=== PATIENT | female | born 1985 | race Caucasian/White ===

== ENCOUNTER → 2016-10-12 | Outpatient (CLI) | payer BC ==
[2016-10-12 20:20] LABS: BASO % 0.1 % (0.0-1.0); EOS # 0.3 K/mm3 (0.0-0.50); EOS % 2.9 % (0.0-3.0); LARGE UNSTAINED CELL # 0.1 K/mm3 (0.0-0.4); LARGE UNSTAINED CELL % 1.2 % (0.0-4.0); LYMPH # 1.6 K/mm3 (1.5-4.5); LYMPH % 15.7 % (24.0-44.0); MEAN CORPUSCULAR HEMOGLOBIN 30.6 pg (27.0-33.0); MEAN CORPUSCULAR HGB CONC 35.1 g/dl (32.0-36.5); MEAN CORPUSCULAR VOLUME 87.1 fl (80.0-96.0); MONO # 0.3 K/mm3 (0.0-0.8); MONO % 3.1 % (0.0-5.0); NEUTROPHILS # 7.8 K/mm3 (1.8-7.7); NEUTROPHILS % 76.9 % (36.0-66.0); PLATELET COUNT, AUTOMATED 244 k/mm3 (150-450); WHITE BLOOD COUNT 10.2 K/mm3 (4.0-10.0)
[2016-10-13 09:22] LABS: HIV SCRN NEGATIVE (NEGATIVE); HIV SCRN1 NEGATIVE (NEGATIVE)
[2016-10-13 09:29] LABS: CONTROL LINE INT CTR LINE PRESENT
[2016-10-13 09:54] LABS: HBsAg Prenatal NEGATIVE (NEGATIVE)
== END | disposition home or self-care (01) ==
LOC: M WUC 15:53
PROVIDERS: ATTEND Advanced Practice Midwife
DX: Z34.81 Encounter for supervision of other normal pregnancy, first trimester (principal); Z36 Encounter for antenatal screening of mother; Z3A.00 Weeks of gestation of pregnancy not specified

== ENCOUNTER → 2016-11-30 | Outpatient (CLI) | payer BC ==
--- NOTE | 2016-12-01 07:15 | REP ---
Clinical: Anatomical evaluation. Comparison: None . Findings: Examination demonstrates a single live intrauterine in cephalic presentation. motion is identified by technologist. Placenta is noted anteriorly and grade zero without evidence for placenta previa or abruption. Amniotic fluid volume is normal. Cervix measures 4.3 cm in length and appears closed. No evidence for nuchal cord. Gestational age by current measurements 20 weeks 3 days with MASOOD 04/16/2017 . FHR equals 144 beats per minute. BPD 4.9 cm 20 weeks 6 days HC 18.0 cm 20 weeks 3 days AC 16.1 cm 21 weeks 1 day FL 3.4 cm 20 weeks 3 days HL 3.3 cm 21 weeks 0 days HC/AC ratio 1.12 Estimated weight 379 grams ( 59th percentile). Anatomical assessment demonstrates normal structures including cranium, choroid plexus, cavum, cerebellum/posterior fossa, facial features, lungs, diaphragm, stomach, cord insertion/three-vessel cord, kidneys/bladder, spine, and extremities. Impression: Single live intrauterine in cephalic presentation. Limited evaluation of the heart and cardiac ventricular outflow tracts noted. Remainder of the anatomical assessment is complete and normal. Signed by Sergio Box MD 12/01/2016 07:07 A
== END ==
LOC: M SMT 14:46
PROVIDERS: ATTEND Advanced Practice Midwife
DX: Z34.82 Encounter for supervision of other normal pregnancy, second trimester (principal); Z36 Encounter for antenatal screening of mother; Z3A.20 20 weeks gestation of pregnancy

== ENCOUNTER → 2016-12-28 | Outpatient (CLI) | payer BC ==
--- NOTE | 2016-12-28 16:59 | REP ---
OB ULTRASOUND: Real-time sonographic evaluation of the gravid uterus is performed utilizing transabdominal and endovaginal technique. There is a single living intrauterine gestation with estimated gestational age of 24 weeks 3 days. EDC 04/16/2017. Today's measurements indicate appropriate growth. BPD 62 mm = 25 weeks 1 day, 64th percentile. HC 227 mm = 24 weeks 5 days, 55th percentile. AC 212 mm = 25 weeks 5 day, 76th percentile. Femur length 43 mm = 24 weeks 1 days, 44th percentile. HC/AC ratio 1.07 within normal range. Estimated weight 763 grams, 61st percentile. heart rate 141 beats per minute. SEEN/GROSSLY UNREMARKABLE Lateral ventricles Yes Posterior fossa Yes Upper lip Yes Four-chamber heart Yes LVOT Yes RVOT Yes Stomach Yes Cord insertion Yes Three vessel cord Yes Kidneys Yes Bladder Yes Spine Yes position: Vertex Placenta: Anterior and grade 0 with no previa or abruption. Amniotic fluid: Within normal limits. Cervix is closed and measures 4.7 cm in length. Signed by Stefan Mullen MD 12/29/2016 02:24 P
== END ==
LOC: M SMT 14:54
PROVIDERS: ATTEND Advanced Practice Midwife
DX: Z34.82 Encounter for supervision of other normal pregnancy, second trimester (principal); Z36 Encounter for antenatal screening of mother; Z3A.24 24 weeks gestation of pregnancy

== ENCOUNTER → 2017-01-03 | Outpatient (REF) | payer BC | LOC: M LAB REF 16:29 | PROVIDERS: ATTEND Physician Assistant | DX: J02.9 Acute pharyngitis, unspecified (principal) ==

== ENCOUNTER → 2017-02-08 | Outpatient (CLI) | payer BC ==
[2017-02-08 17:20] LABS: MEAN CORPUSCULAR HEMOGLOBIN 30.5 pg (27.0-33.0); MEAN CORPUSCULAR HGB CONC 33.6 g/dl (32.0-36.5); MEAN CORPUSCULAR VOLUME 90.9 fl (80.0-96.0); RED CELL DISTRIBUTION WIDTH 13.8 % (11.5-14.5); WHITE BLOOD COUNT 11.3 K/mm3 (4.0-10.0)
== END ==
LOC: M SMT 15:13
PROVIDERS: ATTEND Advanced Practice Midwife
DX: Z34.82 Encounter for supervision of other normal pregnancy, second trimester (principal); Z36 Encounter for antenatal screening of mother; Z3A.00 Weeks of gestation of pregnancy not specified

== ENCOUNTER → 2017-02-15 | Outpatient (CLI) | payer BC | LOC: M LAB 07:49 | PROVIDERS: ATTEND Advanced Practice Midwife | DX: R73.02 Impaired glucose tolerance (oral) (principal) ==

== ENCOUNTER → 2017-03-21 | Outpatient (REF) | payer BC ==
[~2017-03-21] MED LIST: ACET50TA PO; IBUP-1114 PO; PRENTAB9 PO
== END ==
LOC: M LAB REF 16:51
PROVIDERS: ATTEND Specialist
DX: Z34.83 Encounter for supervision of other normal pregnancy, third trimester (principal); Z36 Encounter for antenatal screening of mother; Z3A.00 Weeks of gestation of pregnancy not specified

== ENCOUNTER → 2017-03-31 | Outpatient (CLI) | payer BC ==
--- NOTE | 2017-04-01 06:33 | REP ---
Clinical: Anatomical evaluation. Comparison: 12/28/2016 . Findings: Examination demonstrates a single live intrauterine in cephalic presentation. motion is identified by technologist. Placenta is noted anteriorly and grade II without evidence for placenta previa or abruption. Amniotic fluid volume is normal. No evidence for nuchal cord Gestational age by first US 37 weeks 5 days with MASOOD 04/16/2017 . Gestational age by current measurements 38 weeks 5 days with MASOOD 04/09/2017 . FHR equals 123 beats per minute. Estimated weight 3917 grams ( 93rd percentile). Amniotic fluid index 12.6 cm Impression: Single live advanced gestation in cephalic presentation demonstrating appropriate interval growth. Amniotic fluid volume normal. Estimated weight upper limits of normal. Signed by Sergio Box MD 04/01/2017 04:50 A
== END ==
LOC: M RAD 12:48
PROVIDERS: ATTEND Advanced Practice Midwife
DX: O26.843 Uterine size-date discrepancy, third trimester (principal); Z36 Encounter for antenatal screening of mother; Z3A.38 38 weeks gestation of pregnancy

== ENCOUNTER 2017-04-13 07:36 | Inpatient (IN) | payer BC ==
[~2017-04-13] VITALS: Ht 165.1 cm; Wt 101.0 kg
[2017-04-13] VITALS (50 sets, daily range): BP systolic 95–159; BP diastolic 48–84
[2017-04-13] MEDS ORDERED: miSOPROStol 50 MCG 1/2 TAB (S0191) PO ONE (09:00)
[2017-04-13 09:20] LABS: MEAN CORPUSCULAR HEMOGLOBIN 30.6 pg (27.0-33.0); MEAN CORPUSCULAR HGB CONC 34.9 g/dl (32.0-36.5); MEAN CORPUSCULAR VOLUME 87.7 fl (80.0-96.0); RED CELL DISTRIBUTION WIDTH 13.8 % (11.5-14.5)
[2017-04-13] MEDS ORDERED: PRENTAB9 PO (09:33)
--- NOTE | 2017-04-13 10:32 | HPE ---
DATE OF ADMISSION: 04/13/2017 Lizeth is a 31-year-old 2, para 1-0-0-1 at 39-1/7 weeks with an estimated date of confinement (EDC) of 04/19/2017 based on first trimester ultrasound. She presents to labor and delivery today for induction of labor due to large for gestational age fetus, per consult with Dr. Kristal Lockett. She denies regular contractions, vaginal bleeding and leakage of fluid. Her fetus has been active. care was initiated at [facility] in the first trimester. course has been complicated by a history of a LEEP procedure in 2004. She had a normal transvaginal cervical length performed with her anatomy scan, and a history of asthma with rare inhaler use. OBSTETRICAL HISTORY: December 2011 of 41 weeks gestation, following an induction of labor, she had a spontaneous vaginal delivery for a 9 pound male. OB LABS: Blood type O positive. Antibody screen negative. Rubella immune. VDRL nonreactive. Urine culture no growth. Hep B surface antigen negative. HIV negative. Hep C antibody nonreactive. Gonorrhea and chlamydia negative. She did decline all genetic serum screening labs. Her gestational diabetic screening was elevated at 161 with a normal 3-hour glucose tolerance test, fasting of 90, 1-hour 152, 2-hour 117, 3-hour 81. Her Group B Streptococcus (GBS) is negative. PAST MEDICAL HISTORY: Asthma, infrequent inhaler use. Abnormal Pap. Childhood varicella. SURGERIES: LEEP. Metal plate placed in her right ankle March 2016. Appendectomy in 1997. FAMILY HISTORY: Noncontributory. SOCIAL HISTORY: The patient is . Her is at bedside and supportive as well as her mom. She is a nonsmoker. Denies any history of alcohol and drug use. No history of any sexually transmitted infections and denies history of abuse, physical, sexual and emotional. ALLERGIES: 1. SEPTRA. CURRENT MEDICATIONS: - albuterol inhaler p.r.n. - vitamin OBJECTIVE: Temperature 98.5, pulse 75, respirations 18, blood pressure 132/63. She is alert and oriented times three. She is in no apparent distress, smiling and talkative. heart rate is 130 with moderate variability, positive accelerations, no decelerations. No pattern of regular contractions. Her abdomen is gravid, cephalic presentation. Estimated weight 9 pounds. Sterile vaginal exam 1 cm dilated, 80% effaced, -3 station. ASSESSMENT: Intrauterine at 39-1/7 weeks. heart rate category 1. Large for gestational age. PLAN: Admit patient to labor and delivery. Saline lock. Regular diet at this time. Out of bed ad bailee. Labs routine. Start misoprostol 50 mcg p.o. for cervical ripening with likely IV Pitocin following that. The patient does desire an epidural when she is uncomfortable in her labor. I did review risks to induction of labor including increased risk for section, failed induction, intolerance to labor. The patient has had all of her questions answered and does desire to proceed with induction. I do anticipate labor and a spontaneous vaginal delivery. [facility]
[2017-04-13] MEDS ORDERED: OXYTOCIN DRIP 30 UNITS in APPROPRIATE DILUENT 1 EA IV SCH (13:30)
[2017-04-13] MEDS: LR 1,000 ML IV SCH ×2 (13:47→18:29)
[2017-04-13] MEDS ORDERED: FENTANYL 2MCG/ML ROPIVACAINE 0.2% IN 0.9% NACL 200ML IVBAG As Ordered ONE (18:44)
[2017-04-13] MEDS ORDERED: REFRIGERATOR IV KEYS XX PRN (19:30)
[2017-04-13] MEDS ORDERED: ePHEDrine SULFATE 25 MG/5 ML(5MG/ML) SYRINGE IV PRN (19:30)
[2017-04-13] MEDS ORDERED: FENTANYL/ROPIVACAINE/NACL BAG 200 ML EPIDURAL SCH (19:30)
[2017-04-13] MEDS ORDERED: ONDANSETRON 4MG/2ML VIAL (J2405) IV PRN (19:30)
[2017-04-13] MEDS ORDERED: diphenhydrAMINE INJ 50MG/ML VIAL (J1200) IV PRN (19:30)
[2017-04-13] MEDS ORDERED: EPIDURAL/PCA KEYS XX PRN (19:30)
[2017-04-13] MEDS ORDERED: EPIDURAL COMMENT XX SCH (19:30)
[2017-04-13] MEDS ORDERED: NALOXONE INJ 0.4 MG/1 ML VIAL (J2310) IV PRN (19:30)
[2017-04-13] MEDS ORDERED: LACTATED RINGER'S 1000 ML IV PRN (19:30)
[2017-04-13] MEDS ORDERED: ALBUTEROL 90 MCG/ACT 8GM HFA INHALER INH PRN (20:15)
[2017-04-14] VITALS (17 sets, daily range): BP systolic 102–158; BP diastolic 54–82
[2017-04-14] MEDS ORDERED: METHYLERGONOVINE MALEATE 0.2 MG/ML VIAL (J2210) As Ordered ONE (02:05)
[2017-04-14] MEDS ORDERED: OXYTOCIN DRIP 30 UNITS in APPROPRIATE DILUENT 1 EA IV SCH (02:35)
[2017-04-14] MEDS ORDERED: DIBUCAINE 1% OINTMENT 30GM TOP PRN (02:45)
[2017-04-14] MEDS ORDERED: METHYLERGONOVINE MALEATE 0.2 MG/ML VIAL (J2210) IM ONE (02:45)
[2017-04-14] MEDS ORDERED: ANUSOL HC CREAM 30GM TOP PRN (02:45)
[2017-04-14] MEDS ORDERED: RHOGAM 300 MCG (1500 IU) INJ (J2790) IM SCH (02:45)
[2017-04-14] MEDS ORDERED: MEASLES,MUMPS,RUBELLA VACCINE INJ (MMR-II) (90707) SC SCH (02:45)
[2017-04-14] MEDS ORDERED: METHYLERGONOVINE MALEATE 0.2 MG TAB PO PRN (02:45)
[2017-04-14] MEDS: IBUPROFEN 800 MG TAB PO PRN ×3 (03:55→21:41)
--- NOTE | 2017-04-14 05:57 | DN ---
DATE OF DELIVERY: 04/14/2017 SUBJECTIVE: Lizeth is a 31-year-old 2, para 2-0-0-2 now, who was admitted to labor and delivery for induction of labor. Misoprostol and intravenous (IV) Pitocin were utilized and labor did ensue. She did utilize an epidural for her labor coping. She progressed to full dilation at 0119. She pushed to a normal spontaneous vaginal delivery of a live male infant in occiput anterior (OA) position with restitution to left occiput transverse (LOT) position at 0138. There was a nuchal cord times one, loose, that was reduced manually at the time of delivery. [place] shoulders delivered with gentle downward traction and the corpus immediately followed. He was placed on maternal abdomen crying and active. His mouth and nares were bulb suctioned. The cord was clamped times two and cut by the father of the baby. A spontaneous expulsion of an intact placenta with three-vessel cord by Butts mechanism was at 0150. Uterine hemostasis was achieved with IV Pitocin rapid infusion, uterine fundal massage and Methergine intramuscular (IM). Estimated blood loss 500 mL. Perineum and vagina were inspected, noted at a first-degree midline laceration. The laceration was repaired under epidural anesthesia with 3-0 Rapide in the usual fashion. male weighed 8 pounds 7 ounces, 3840 grams, scores nine and nine. Mom plans to breastfeed her son, and the family is undecided as to what to name their son at this time. At the close of delivery, lap counts, needle counts and instrument counts were correct and verified.
[2017-04-14] MEDS: ACETAMINOPHEN 500 MG TAB PO PRN ×3 (06:34→20:05)
[2017-04-14] MEDS: PRENATAL VITAMINS CHEWABLE TABLET PO SCH (09:50)
[2017-04-15 05:53] VITALS: BP 132/77
[2017-04-15] MEDS: IBUPROFEN 800 MG TAB PO PRN ×2 (06:51→16:16)
[2017-04-15] MEDS: DOCUSATE SODIUM 100 MG CAP PO PRN (06:51)
[2017-04-15] MEDS: PRENATAL VITAMINS CHEWABLE TABLET PO SCH (08:28)
[2017-04-15] MEDS: ACETAMINOPHEN 500 MG TAB PO PRN (08:29)
[2017-04-15 18:09] VITALS: BP 130/77
[2017-04-16] MEDS: IBUPROFEN 800 MG TAB PO PRN (03:27)
[2017-04-16] MEDS: DOCUSATE SODIUM 100 MG CAP PO PRN (05:42)
[2017-04-16] MEDS: ACETAMINOPHEN 500 MG TAB PO PRN (05:42)
[2017-04-16 06:05] VITALS: BP 138/72
[2017-04-16] MEDS: PRENATAL VITAMINS CHEWABLE TABLET PO SCH (07:44)
[2017-04-16] MEDS ORDERED: IBUP-1114 PO (10:27)
[2017-04-16] MEDS ORDERED: ACET50TA PO (10:27)
== END 2017-04-16 11:15 | disposition home or self-care (01) | DRG 560 ==
LOC: M LDI 07:36 → M OBS 04-14 04:00
PROVIDERS: ADMIT Advanced Practice Midwife; ATTEND Advanced Practice Midwife
PROC: 10907ZC Drainage of Amniotic Fluid, Therapeutic from Products of Conception, Via Natural or Artificial Opening (ICD-10-PCS; 2017-04-13)
PROC: 3E0P7GC Introduction of Other Therapeutic Substance into Female Reproductive, Via Natural or Artificial Opening (ICD-10-PCS; 2017-04-13)
PROC: 10E0XZZ Delivery of Products of Conception, External Approach (ICD-10-PCS; principal; 2017-04-14)
PROC: 0HQ9XZZ Repair Perineum Skin, External Approach (ICD-10-PCS; 2017-04-14)
DX: O36.63X0 Maternal care for excessive fetal growth, third trimester, not applicable or unspecified (principal); O69.81X0 Labor and delivery complicated by cord around neck, without compression, not applicable or unspecified; Z3A.39 39 weeks gestation of pregnancy; O70.0 First degree perineal laceration during delivery; Z37.0 Single live birth

== ENCOUNTER 2018-02-11 00:47 | Emergency (ER) | payer BC ==
[2018-02-11] MEDS ORDERED: ACETAMINOPHEN 325 MG TAB As Ordered (01:34)
[2018-02-11 01:41] LABS: CONTROL LINE UCG INT CTR LINE PRESENT; URINE PREG TEST NEGATIVE (NEGATIVE)
[2018-02-11] MEDS ORDERED: METAL LOCK LOOP XX (07:09)
[2018-02-11] MEDS: LIDOCAINE W/EPINEPHRINE 1% 20ML VIAL SC (07:26)
[2018-02-11] MEDS: IBUPROFEN 600 MG TAB PO (07:27)
== END 2018-02-11 07:40 | disposition home or self-care (01) ==
LOC: M ED 00:47
DX: S01.01XA Laceration without foreign body of scalp, initial encounter (principal); S02.5XXA Fracture of tooth (traumatic), initial encounter for closed fracture; W10.9XXA Fall (on) (from) unspecified stairs and steps, initial encounter; Y92.009 Unspecified place in unspecified non-institutional (private) residence as the place of occurrence of the external cause; J45.909 Unspecified asthma, uncomplicated; Z88.2 Allergy status to sulfonamides
CPT/HCPCS: 70450

== ENCOUNTER → 2018-10-06 | Outpatient (REF) | payer BC ==
[~2018-10-06] MED LIST changes: -ACET50TA PO; +KEFL500C17 PO; +MAPA500T2 PO; +VENTAER IN
[2018-10-10 15:26] LABS: HPV HYBRID CAPTURE II Negative (Negative)
== END ==
LOC: M LAB REF 17:23
PROVIDERS: ATTEND Advanced Practice Midwife
DX: Z12.4 Encounter for screening for malignant neoplasm of cervix (principal)
CPT/HCPCS: 87624; G0123

== ENCOUNTER 2019-10-21 09:19 | Observation (INO) | payer BC ==
[~2019-10-21] VITALS: Ht 165.1 cm; Wt 108.0 kg
[2019-10-21] MEDS ORDERED: PRED20TA PO ×2 (09:26→12:47)
[2019-10-21] MEDS ORDERED: SERT25TA21 PO (09:26)
[2019-10-21] MEDS ORDERED: IPRATROPIUM 0.5MG/ALBUTEROL 2.5MG INH SOL UD 3ML (DUONEB)(J7620) NEB ONE (09:45)
[2019-10-21 10:03] LABS: BASO % 0.3 % (0.0-1.0); EOS # 0.1 10^3/uL (0.0-0.5); EOS % 0.6 % (0.0-3.0); HEMATOCRIT 42.8 % (36.0-47.0); HEMOGLOBIN 14.2 g/dl (12.0-15.5); LYMPH # 1.5 10^3/uL (1.5-5.0); LYMPH % 12.1 % (24.0-44.0); MEAN CORPUSCULAR HGB CONC 33.2 g/dl (32.0-36.5); MEAN CORPUSCULAR VOLUME 90.5 fl (80.0-96.0); MONO # 0.6 10^3/uL (0.0-0.8); MONO % 4.8 % (0.0-5.0); NEUTROPHILS # 10.1 10^3/uL (1.5-8.5); NEUTROPHILS % 81.6 % (36.0-66.0); PLATELET COUNT, AUTOMATED 252 10^3/uL (150-450); RED BLOOD COUNT 4.73 10^6/uL (4.00-5.40); WHITE BLOOD COUNT 12.4 10^3/uL (4.0-10.0)
[2019-10-21] MEDS ORDERED: NS 1,000 ML IV ONE ×2 (10:15→13:45)
[2019-10-21] MEDS ORDERED: methylPREDNISolone INJ 125 MG/2 ML VIAL (J2930) IM ONE (10:15)
[2019-10-21 10:30] LABS: INFLUENZA A AMPLIFICATION NEGATIVE (NEGATIVE); INFLUENZA B AMPLIFICATION NEGATIVE (NEGATIVE)
[2019-10-21] MEDS ORDERED: methylPREDNISolone INJ 125 MG/2 ML VIAL (J2930) IV ONE (10:30)
--- NOTE | 2019-10-21 10:35 | REP ---
PA and lateral chest: Comparison is 09/01/2015. The lung valdez are clear. The cardiac size is normal. The yonas, mediastinum, and skeletal structures are unremarkable. Impression: Negative PA and lateral chest. There is no interval change. Electronically Signed by Stefan Petty MD 10/21/2019 10:26 A
[2019-10-21] MEDS ORDERED: ISOVUE-370 76% 100ML VIAL (Q9967) As Ordered ONE (10:45)
[2019-10-21] MEDS: IPRATROPIUM 0.5MG/ALBUTEROL 2.5MG INH SOL UD 3ML (DUONEB)(J7620) NEB PRN ×3 (11:38→21:37)
[2019-10-21] MEDS: MAG SULF 1GM/100ML (MAG RUN) 1 GM in IV 1 EA IV SCH ×2 (11:44→11:56)
--- NOTE | 2019-10-21 12:11 | REP ---
CT of the chest with IV contrast, CT pulmonary angiography: There are no comparison chest CTs. There are no emboli in the pulmonary trunk or central pulmonary arteries. There are no emboli in the pulmonary lobe or segment branches. There are no infiltrates or pleural effusions. There are no masses or nodules. There is no mediastinal, hilar or axillary lymph adenopathy. The thoracic aorta is unremarkable. The cardiac size normal. There is no pericardial effusion. The visualized upper abdominal contents are unremarkable. Impression: There are no pulmonary emboli. Otherwise, essentially negative CT study of the chest with IV contrast. Electronically Signed by Stefan Petty MD 10/21/2019 12:03 P
[2019-10-21] MEDS ORDERED: ACETAMINOPHEN 500 MG TAB PO ONE (12:15)
[2019-10-21] MEDS ORDERED: PROA1AER2 INH ×2 (12:50→14:39)
[2019-10-21 14:00] VITALS: BP_SYST 192; BP_SYST 199; BP_DIAS 100; BP_DIAS 93
[2019-10-21] MEDS ORDERED: FLUTISP NARES (14:40)
[2019-10-21] MEDS ORDERED: amLODIPine 5 MG TAB PO ONE (16:00)
[2019-10-21 16:24] VITALS: BP 185/86
[2019-10-21] MEDS: NS 0.45% 1,000 ML IV SCH (16:28)
[2019-10-21 17:17] LABS: ALBUMIN 4.3 GM/DL (3.2-5.2); ALT/SGPT 18 U/L (12-78); BILIRUBIN,TOTAL 0.3 MG/DL (0.2-1.0); BLOOD UREA NITROGEN 10 MG/DL (7-18); CALCIUM LEVEL 8.2 MG/DL (8.5-10.1); CARBON DIOXIDE LEVEL 17 MEQ/L (21-32); CHLORIDE LEVEL 109 MEQ/L (98-107); CREATININE FOR GFR 1.02 MG/DL (0.55-1.30); GLOMERULAR FILTRATION RATE > 60.0 (>60); GLUCOSE, FASTING 178 MG/DL (70-100); POTASSIUM SERUM 3.9 MEQ/L (3.5-5.1); SODIUM LEVEL 138 MEQ/L (136-145); TOTAL PROTEIN 7.5 GM/DL (6.4-8.2)
[2019-10-21 18:00] VITALS: BP 145/78
[2019-10-21] MEDS: methylPREDNISolone INJ 40 MG/1 ML VIAL (J2920) IV SCH (18:22)
--- NOTE | 2019-10-21 18:58 | HPEPDOC ---
[facility] Medical History & Physical Date of Admission Oct 21, 2019 Date of Service: Oct 21, 2019 Attending Physician: ERNST HODGE MD History and Physical CHIEF COMPLAINT: Shortness of Breath HISTORY OF PRESENT ILLNESS: 34-year-old female with past medical history of asthma presents from home with worsening shortness of breath and cough for the past few days. 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 Patient went to urgent care, diagnosed with URI and sent home, symptoms worsening so she presented to the hospital today. In the ED, she received 3 nebulizer treatments with improvement of symptoms and her lab work showed worsening lactate levels for which she will be admitted for observation. Patient is currently without complaints, reports mild chest discomfort with deep inspiration, otherwise dy spnea and cough have drastically improved. She denies any nausea, vomiting, abdominal pain or diarrhea. 10 point review of system is negative except for above PAST MEDICAL HISTORY: 1. Asthma. PAST SURGICAL HISTORY: 1. Appendectomy. SOCIAL HISTORY: Never smoker. Social alcohol use. Denies drug use FAMILY HISTORY: Negative for cancer or heart disease ALLERGIES: Please see below. HOME MEDICATIONS: Please see below. PHYSICAL EXAMINATION: VITAL SIGNS: Please see below. GENERAL: Obese HEENT: Normocephalic, atraumatic, moist mucous membranes NECK: Supple CARDIOVASCULAR EXAMINATION: S1, S2, no murmurs RESPIRATORY EXAMINATION: Expiratory wheezing appreciated ABDOMINAL EXAMINATION: Soft, nontender, nondistended, hypoactive bowel sounds EXTREMITIES: Range of motion intact SKIN: No rash NEUROLOGICAL EXAMINATION: Alert and oriented 3, no focal deficits PSYCHIATRIC EXAMINATION: Calm and cooperative LABORATORY DATA: See below. IMAGING: CTA negative for PE, no consolidation appreciated MICROBIOLOGY: Please see below. ASSESSMENT: 34-year-old female with past medical history of asthma and sick contacts being admitted for asthma exacerbation and anion gap metabolic acidosis secondary to lactic acidosis. PLAN: 1. Asthma exacerbation. Likely due to viral infection, flu negative, respiratory viral panel ordered, cultures pending, Solu-Medrol 40 mg IV every 8 hours, DuoNeb as needed every 6 hours. 2. Lactic acidosis. Unknown etiology, possibly secondary to albuterol nebulizers, although unlikely given persistent worsening, patient is clinically benign, significantly hypoactive bowel sounds, although patient reports passing flatus 30 minutes ago, abdominal exam is completely benign otherwise, we'll continue to monitor lactate levels and consider CT of the abdomen and pelvis if patient becomes symptomatic lactate continues to worsen. Continue IV fluids DVT prophylaxis: TEDs GI prophylaxis: Not needed Vital Signs Vital Signs Date Time Temp Pulse Resp B/P (MAP) Pulse Ox O2 Delivery O2 Flow Rate FiO2 10/21/19 18:00 86 18 145/78 (100) 96 Room Air 10/21/19 14:00 97.7 Laboratory Data Labs 24H Laboratory Tests 2 10/21/19 09:52: Immature Granulocyte % (Auto) 0.6, Neutrophils (%) (Auto) 81.6H, Lymphocytes (%) (Auto) 12.1L, Monocytes (%) (Auto) 4.8, Eosinophils (%) (Auto) 0.6, Basophils (%) (Auto) 0.3, Neutrophils # (Auto) 10.1H, Lymphocytes # (Auto) 1.5, Monocytes # (Auto) 0.6, Eosinophils # (Auto) 0.1, Basophils # (Auto) 0.0, Nucleated Red Blood Cells % (auto) 0.0, Influenza Type A (RT-PCR) NEGATIVE, Influenza Type B (RT-PCR) NEGATIVE 10/21/19 09:53: POC Glucose (Misc Panel) 117H, POC Sodium (Misc Panel) 138, POC Potassium (Misc Panel) 4.0, POC Chloride (Misc Panel) 105, POC Total CO2 (Misc Panel) 23.0, POC Blood Urea Nitrogen (Misc Panel 13, POC Ionized Calcium (Misc Panel) 4.8, POC Creatinine (Misc Panel) 0.7, POC Hematocrit (Misc Panel) 42.0 10/21/19 09:55: POC Beta HCG, Quantitative < 5.0 10/21/19 10:07: POC Lactate (Misc Panel) 2.28*H 10/21/19 12:52: POC Lactate (Misc Panel) 3.20*H 10/21/19 13:01: Lactic Acid Level 3.7*H 10/21/19 14:36: Lactic Acid Level 4.6*H 10/21/19 16:34: Anion Gap 12, Glomerular Filtration Rate > 60.0, Calcium Level 8.2L, Total Bilirubin 0.3, Aspartate Amino Transf (AST/SGOT) 7, Alanine Aminotransferase (ALT/SGPT) 18, Alkaline Phosphatase 66, Total Protein 7.5, Albumin 4.3, Albumin/Globulin Ratio 1.34 10/21/19 17:37: Lactic Acid Level 6.9*H CBC/BMP Laboratory Tests 10/21/19 09:52 10/21/19 16:34 Microbiology Microbiology 10/21/19 Respiratory Virus Panel (PCR) ([facility]), Received Pending Home Medications Scheduled Prednisone (Prednisone) 20 Mg Tablet, 40 MG PO DAILY Sertraline HCl (Sertraline HCl) 25 Mg Tablet, 25 MG PO DAILY Scheduled PRN Acetaminophen (Mapap) 500 Mg Tab, 1,000 MG PO Q6H PRN for PAIN Albuterol Sulfate (Proair Respiclick) 90 Mcg Aer.pow.ba, 2 PUFF INH Q4H PRN for SOB/WHEEZING Fluticasone Propionate (Fluticasone Propionate) 16 Gm [place].susp, 1 SPRAY NARES BID PRN for CONGESTION Allergies Coded Allergies: Sulfa (Sulfonamide Antibiotics) (Verified Allergy, Unknown, unknown, 10/21/19) A-FIB/CHADSVASC A-FIB History Current/History of A-Fib/PAF?: No ERNST HODGE MD Oct 21, 2019 18:58
[2019-10-21] MEDS ORDERED: FLUTICASONE PROP 0.05% NASAL SPRAY 16 GM (FLONASE) NARES PRN (19:00)
[2019-10-21 22:00] VITALS: BP 144/72
[2019-10-21] MEDS: ACETAMINOPHEN 500 MG TAB PO PRN (22:10)
[2019-10-22] MEDS: NS 0.45% 1,000 ML IV SCH (01:37)
[2019-10-22] MEDS: methylPREDNISolone INJ 40 MG/1 ML VIAL (J2920) IV SCH ×2 (01:37→09:34)
[2019-10-22 06:00] VITALS: BP 143/78
[2019-10-22] MEDS: ACETAMINOPHEN 500 MG TAB PO PRN (06:10)
[2019-10-22 06:18] LABS: HEMATOCRIT 37.4 % (36.0-47.0); HEMOGLOBIN 12.8 g/dl (12.0-15.5); MEAN CORPUSCULAR HEMOGLOBIN 30.8 pg (27.0-33.0); MEAN CORPUSCULAR HGB CONC 34.2 g/dl (32.0-36.5); MEAN CORPUSCULAR VOLUME 90.1 fl (80.0-96.0); PLATELET COUNT, AUTOMATED 240 10^3/uL (150-450); RED BLOOD COUNT 4.15 10^6/uL (4.00-5.40); WHITE BLOOD COUNT 19.3 10^3/uL (4.0-10.0)
[2019-10-22 06:36] LABS: HEMOGLOBIN A1c 5.4 %
[2019-10-22 06:45] LABS: ALBUMIN 3.8 GM/DL (3.2-5.2); ALT/SGPT 21 U/L (12-78); BILIRUBIN,TOTAL 0.2 MG/DL (0.2-1.0); BLOOD UREA NITROGEN 9 MG/DL (7-18); CARBON DIOXIDE LEVEL 20 MEQ/L (21-32); CHLORIDE LEVEL 110 MEQ/L (98-107); CREATININE FOR GFR 0.69 MG/DL (0.55-1.30); GLOMERULAR FILTRATION RATE > 60.0 (>60); GLUCOSE, FASTING 156 MG/DL (70-100); MAGNESIUM LEVEL 2.5 MG/DL (1.8-2.4); POTASSIUM SERUM 4.1 MEQ/L (3.5-5.1); SODIUM LEVEL 140 MEQ/L (136-145); TOTAL PROTEIN 7.3 GM/DL (6.4-8.2)
[2019-10-22] MEDS: IPRATROPIUM 0.5MG/ALBUTEROL 2.5MG INH SOL UD 3ML (DUONEB)(J7620) NEB PRN (08:39)
[2019-10-22] MEDS ORDERED: SERTRALINE HCL 25 MG TABLET PO SCH (09:00)
[2019-10-22] MEDS ORDERED: IBUPROFEN 600 MG TAB PO PRN (09:15)
[2019-10-22] MEDS ORDERED: PRED10TA2 PO (12:08)
--- NOTE | 2019-10-22 12:32 | DS.PDOC ---
Discharge Summary General Date of Admission Oct 21, 2019 at 09:20 Date of Discharge 10/22/19 Attending Physician: ERNST HODGE MD Discharge Summary PROCEDURES PERFORMED DURING STAY: None. ADMITTING DIAGNOSES: 1. Asthma exacerbation secondary to viral infection. DISCHARGE DIAGNOSES: 1. Exacerbation secondary to viral infection. COMPLICATIONS/CHIEF COMPLAINT: Asthma Exacerabation Sob. HISTORY OF PRESENT ILLNESS: 34-year-old female with past medical history of asthma, was admitted for asthma exacerbation and elevated lactate. Patient was treated with IV fluids, elevated lactate was likely due to increased metabolic demands and albuterol nebulizers, lactate trended down, patient remained clinically stable throughout. Respiratory viral panel was positive for human rhinovirus, clinically patient does not appear to have superimposed pustular infection at this time, CT chest negative for consolidation. Patient will be discharged home with prednisone taper, advised to continue nebulizer treatments as needed. Patient is clinically and hemodynamically stable for discharge and outpatient follow-up. HOSPITAL COURSE: As above. DISCHARGE MEDICATIONS: Please see below. ALLERGIES: Please see below. PHYSICAL EXAMINATION: VITAL SIGNS: Please see below. GENERAL: Obese HEENT: Normocephalic, atraumatic, moist mucous membranes NECK: Supple CARDIOVASCULAR EXAMINATION: S1, S2, no murmurs RESPIRATORY EXAMINATION: Scattered rhonchi, mild expiratory wheezing appreciated ABDOMINAL EXAMINATION: Soft, nontender, nondistended, hypoactive bowel sounds EXTREMITIES: Range of motion intact SKIN: No rash NEUROLOGICAL EXAMINATION: Alert and oriented 3, no focal deficits PSYCHIATRIC EXAMINATION: Calm and cooperative LABORATORY DATA: Please see below. IMAGING: CTA negative for PE, no consolidations PROGNOSIS: Good ACTIVITY: As tolerated. DIET: Regular DISCHARGE PLAN: Follow with PCP 1-2 weeks DISPOSITION: Home. DISCHARGE INSTRUCTIONS: 1. As above. DISCHARGE CONDITION: Stable. TIME SPENT ON DISCHARGE: Greater than 26 minutes. Vital Signs/I&Os Vital Signs Date Time Temp Pulse Resp B/P (MAP) Pulse Ox O2 Delivery O2 Flow Rate FiO2 10/22/19 06:00 98.1 72 19 143/78 (99) 93 Room Air I&O- Last 24 Hours up to 6 AM 10/22/19 06:00 Intake Total 2660 ml Output Total 0 ml Balance 2660 ml Laboratory Data Labs 24H Laboratory Tests 2 10/21/19 12:52: POC Lactate (Misc Panel) 3.20*H 10/21/19 13:01: Lactic Acid Level 3.7*H 10/21/19 14:36: Lactic Acid Level 4.6*H 10/21/19 16:34: Anion Gap 12, Glomerular Filtration Rate > 60.0, Calcium Level 8.2L, Total Bilirubin 0.3, Aspartate Amino Transf (AST/SGOT) 7, Alanine Aminotransferase (ALT/SGPT) 18, Alkaline Phosphatase 66, Total Protein 7.5, Albumin 4.3, Albumin/Globulin Ratio 1.34 10/21/19 17:37: Lactic Acid Level 6.9*H 10/21/19 20:18: Lactic Acid Level 3.7*H 10/21/19 22:34: Lactic Acid Followup at 4 Hours 3.0*H 10/22/19 06:02: Nucleated Red Blood Cells % (auto) 0.0, Anion Gap 10, Glomerular Filtration Rate > 60.0, Estimated Mean Plasma Glucose 108, Hemoglobin A1c 5.4, Calcium Level 8.0L, Magnesium Level 2.5H, Total Bilirubin 0.2, Aspartate Amino Transf (AST/SGOT) 6L, Alanine Aminotransferase (ALT/SGPT) 21, Alkaline Phosphatase 61, Total Protein 7.3, Albumin 3.8, Albumin/Globulin Ratio 1.09 CBC/BMP Laboratory Tests 10/21/19 16:34 10/22/19 06:02 Microbiology Microbiology 10/21/19 Respiratory Virus Panel (PCR) ([facility]) - Final, Complete Human Rhinovirus/Enterovirus Discharge Medications Scheduled Prednisone (Prednisone) 10 Mg Tablet, 1 TAB PO DAILY Taper: 4 tabs daily x2 days, then 3 tabs daily x2 days, then 2 tabs daily x2 days, then 1 tab daily x2 days. Sertraline HCl (Sertraline HCl) 25 Mg Tablet, 25 MG PO DAILY, (Reported) Scheduled PRN Acetaminophen (Mapap) 500 Mg Tab, 1,000 MG PO Q6H PRN for PAIN, (Reported) Albuterol Sulfate (Proair Respiclick) 90 Mcg Aer.pow.ba, 2 PUFF INH Q4H PRN for SOB/WHEEZING, (Reported) Fluticasone Propionate (Fluticasone Propionate) 16 Gm [place].susp, 1 SPRAY NARES BID PRN for CONGESTION, (Reported) Allergies Coded Allergies: Sulfa (Sulfonamide Antibiotics) (Verified Allergy, Unknown, unknown, 10/21/19) ERNST HODGE MD Oct 22, 2019 12:32
== END 2019-10-22 12:50 | disposition home or self-care (01) ==
LOC: M ED 09:19 → M ED INP 09:20 → ENRESERV 14:14 → M MS5PR 14:46
PROVIDERS: ADMIT Internal Medicine; ATTEND Internal Medicine
DX: J45.901 Unspecified asthma with (acute) exacerbation (principal); B34.9 Viral infection, unspecified; R74.0 Nonspecific elevation of levels of transaminase and lactic acid dehydrogenase [LDH]; E87.2 Acidosis; Z79.899 Other long term (current) drug therapy; Z88.2 Allergy status to sulfonamides; Z79.51 Long term (current) use of inhaled steroids; Z79.52 Long term (current) use of systemic steroids
CPT/HCPCS: 36415; 71046; 71275; 80047; 80053; 83036; 83605; 83735; 84702; 85025; 85027; 87486; 87502; 87581; 87633; 87798; 94640; 94760; 96361; 96365; 96366; 96374; 96375; 96376; 99284; J2920; J2930; J3475; Q9967

== ENCOUNTER 2020-11-19 15:08 | Emergency (ER) | payer BC ==
[~2020-11-19] VITALS: Ht 162.6 cm; Wt 106.0 kg
[~2020-11-19 15:08] MED LIST changes: +FLUTISP NARES; +PRED10TA2 PO; +PRED20TA PO; +PROA1AER2 INH; +SERT25TA21 PO
[2020-11-19] MEDS ORDERED: BREO1INH (15:13)
[2020-11-19] MEDS ORDERED: MECLIZINE 25 MG TABLET PO ONE (15:50)
[2020-11-19] MEDS ORDERED: MECL1TAB31 PO (17:11)
[2020-11-19] MEDS ORDERED: FEXO1TAB16 PO (17:11)
[2020-11-19 17:14] VITALS: BP 164/88
== END 2020-11-19 17:15 | disposition home or self-care (01) ==
LOC: M ED 15:08
DX: H65.02 Acute serous otitis media, left ear (principal); H81.399 Other peripheral vertigo, unspecified ear; J30.9 Allergic rhinitis, unspecified; Z88.1 Allergy status to other antibiotic agents; Z88.2 Allergy status to sulfonamides

== ENCOUNTER → 2023-05-25 | Outpatient (REF) | payer OTHER ==
[~2023-05-25] MED LIST changes: +BREO1INH; +FEXO1TAB16 PO; +FLUT50SP17 NARES; -FLUTISP NARES; +MECL-209 PO
== END ==
LOC: M SFHCWAGY 10:08
PROVIDERS: ATTEND Nurse Practitioner Family
DX: R87.615 Unsatisfactory cytologic smear of cervix (principal); Z12.4 Encounter for screening for malignant neoplasm of cervix; Z01.419 Encounter for gynecological examination (general) (routine) without abnormal findings; Z77.9 Other contact with and (suspected) exposures hazardous to health

== ENCOUNTER 2024-03-09 18:04 | Emergency (ER) | payer OTHER ==
[~2024-03-09] VITALS: Ht 165.1 cm; Wt 101.1 kg
[~2024-03-09 18:04] MED LIST changes: -FLUT50SP17 NARES; +FLUTISP NARES
[2024-03-09] MEDS: IBUPROFEN 600MG TAB PO ONE (19:53)
[2024-03-09] MEDS: ACETAMINOPHEN 325 MG TAB PO ONE (19:54)
[2024-03-09] MEDS: dexAMETHasone 20MG/5ML VIAL IV ONE (20:42)
[2024-03-09] MEDS: cefTRIAXone SOD 1 GM in D5W MINI-BAG PLUS 50 ML IV ONE (20:42)
[2024-03-09] MEDS: AZITHROMYCIN 250MG TABLET PO ONE (20:42)
[2024-03-09] MEDS: NS 1,000 ML IV ONE (20:42)
[2024-03-09] MEDS: guaiFENesin/CODEINE SYRUP 5 ML UDC PO ONE (20:47)
[2024-03-09 20:50] LABS: BASO % 0.2 % (0.0-1.0); EOS % 0.9 % (0.0-3.0); HEMATOCRIT 33.9 % (36.0-47.0); HEMOGLOBIN 11.8 g/dl (12.0-15.5); LYMPH # 0.7 10^3/uL (1.5-5.0); MEAN CORPUSCULAR HEMOGLOBIN 30.3 pg (27.0-33.0); MEAN CORPUSCULAR HGB CONC 34.8 g/dl (32.0-36.5); MEAN CORPUSCULAR VOLUME 87.1 fl (80.0-96.0); MONO # 0.3 10^3/uL (0.0-0.8); MONO % 5.9 % (2.0-8.0); NEUTROPHILS # 3.3 10^3/uL (1.5-8.5); NEUTROPHILS % 76.5 % (36.0-66.0); PLATELET COUNT, AUTOMATED 226 10^3/uL (150-450); RED BLOOD COUNT 3.89 10^6/uL (4.00-5.40); WHITE BLOOD COUNT 4.3 10^3/uL (4.0-10.0)
[2024-03-09] MEDS ORDERED: AZIT-12 PO (21:05)
[2024-03-09 21:09] LABS: BLOOD UREA NITROGEN 8 MG/DL (9-23); CALCIUM LEVEL 8.7 MG/DL (8.5-10.1); CARBON DIOXIDE LEVEL 23 MMOL/L (20-31); CHLORIDE LEVEL 103 MMOL/L (98-107); CREATININE FOR GFR 0.67 MG/DL (0.55-1.30); GLOMERULAR FILTRATION RATE > 60.0 (>60); GLUCOSE, FASTING 122 MG/DL (60-100); POTASSIUM SERUM 3.4 MMOL/L (3.5-5.1); SODIUM LEVEL 135 MMOL/L (136-145)
[2024-03-09] MEDS ORDERED: CEFD300C PO (22:03)
[2024-03-09] MEDS ORDERED: GUAI1SOL5 PO (22:05)
[2024-03-09 22:17] VITALS: BP 163/76; TEMP 99.6; O2SAT 97
[2024-03-09] MEDS ORDERED: GUAI1SOL7 PO (23:15)
[2024-03-09] MEDS ORDERED: ZITHTAB PO (23:15)
== END 2024-03-09 22:19 | disposition home or self-care (01) ==
LOC: M ED 18:04
DX: R06.00 Dyspnea, unspecified (principal); J18.1 Lobar pneumonia, unspecified organism; J45.909 Unspecified asthma, uncomplicated; Z88.2 Allergy status to sulfonamides; Z79.2 Long term (current) use of antibiotics; Z79.899 Other long term (current) drug therapy
CPT/HCPCS: 71046; 80048; 83605; 85025; 87486; 87581; 87633; 87798; 96365; 96374; 99284; J0696; J1100

== ENCOUNTER → 2024-04-17 | Outpatient (CLI) | payer OTHER ==
[~2024-04-17] MED LIST changes: +AZIT-12 PO; +CEFD300C PO; +GUAI1SOL5 PO; +GUAI1SOL7 PO; +ZITHTAB PO
== END ==
LOC: M PLAIMG 10:59
PROVIDERS: ATTEND Internal Medicine
DX: J18.9 Pneumonia, unspecified organism (principal)

== ENCOUNTER → 2024-07-20 | Outpatient (CLI) | payer OTHER | LOC: M WUC 10:45 | PROVIDERS: ATTEND Physician Assistant | DX: R09.1 Pleurisy (principal) ==

== ENCOUNTER → 2025-06-06 | Outpatient (CLI) | payer OTHER | LOC: M WHC 12:57 | PROVIDERS: ATTEND Nurse Practitioner Family | DX: Z12.31 Encounter for screening mammogram for malignant neoplasm of breast (principal) ==

== ENCOUNTER → 2025-07-01 | Outpatient (CLI) | payer OTHER | LOC: M WHC 13:14 | PROVIDERS: ATTEND Nurse Practitioner Family | DX: Z12.31 Encounter for screening mammogram for malignant neoplasm of breast (principal) ==